=== PATIENT | female | born 1930 | race Caucasian/White ===

== ENCOUNTER 2017-07-20 13:01 | Observation (INO) | payer MEDICARE ==
[2017-07-20 14:12] LABS: #Eosinphils 0.3 thou/uL (0.0-0.7); #Lymphocytes 1.4 thou/uL (1.20-3.40); #Monocytes 0.4 thou/uL (0.11-0.59); #Neutrophils 3.1 thou/uL (1.40-6.50); %Basophils 0.9 % (0.0-1.0); %Eosinophils 6.1 % (0.0-10.0); %Lymphocytes 26.8 % (21.0-51.0); %Monocytes 6.7 % (0.0-10.0); Hematocrit 38.9 % (36.0-47.0); Mean Platelet Volume 8.1 fL (7.4-10.4); Red Blood Cell (RBC) Count 3.87 mill/uL (4.20-5.40); White Blood Cell (WBC) Count 5.2 thou/uL (4.8-10.8)
[2017-07-20 14:29] LABS: PTT 20.7 SEC (22.9-36.1); Prothrombin Time 13.4 SEC (12.0-14.7)
[2017-07-20 14:31] LABS: ALT (SGPT) Less than 7 U/L (8-55); AST (SGOT) 15 U/L (5-34); Alkaline Phosphatase 47 U/L (40-150); Anion Gap 13 mmol/L (10-20); BUN (Urea Nitrogen) 43 mg/dL (9.8-20.1); Bilirubin, Total 0.4 mg/dL (0.2-1.2); CK (CPK) 53 U/L (29-168); Calc. Creatinine Clearance 0 mL/min (70-130); Calcium 9.7 mg/dL (7.8-10.44); Carbon Dioxide 26 mmol/L (23-31); Chloride 106 mmol/L (98-107); Estimated GFR-MDRD 28; Globulin 3.2 g/dL (2.4-3.5); Magnesium 2.1 mg/dL (1.6-2.6); Protein, Total 6.8 g/dL (6.0-8.3)
[2017-07-20 14:36] LABS: Troponin I Less than 0.010 ng/mL (< 0.028)
--- NOTE | 2017-07-20 16:15 | CT ---
CT OF THE BRAIN WITHOUT CONTRAST: Date: 07/20/17 COMPARISON: 11/03/16. HISTORY: Patient was found unresponsive by family. Syncope. TECHNIQUE: Multiple contiguous axial images were obtained in a CT of the brain without contrast. FINDINGS: There are scattered hypodensities in the subcortical and periventricular white matter, likely second yamile to small vessel ischemic disease. No large confluent infarction is seen. There is no evidence of hydrocephalus, intracranial hemorrhage, or extra-axial fluid collection. The calvarium and overlying soft tissues are unremarkable. The visualized paranasal sinuses and mast oid air cells are well aerated. IMPRESSION: No evidence of acute intracranial abnormality. POS: [facility]
--- NOTE | 2017-07-20 16:16 | RAD ---
SINGLE VIEW OF CHEST: Date: 07/20/17 COMPARISON: 11/12/16. HISTORY: Syncope. FINDINGS: Single view of the chest shows an enlarged cardiomediastinal silhouette with atherosclerotic calcifi cations in the aorta. The patient is status post sternotomy. There is no evidence of consolidation, mass, or pleural effusion. Degenerative changes are seen in the spine and shoulders. IMPRESSION: Cardiomegaly without evidence of acute cardiopulmonary disease. POS: [facility]
--- NOTE | 2017-07-20 16:19 | HP ---
PRIMARY CARE PHYSICIAN: Rudy Galdamez M.D. PRIMARY BENCH MOVER: Cheikh Adrian M.D. REASON FOR ADMISSION: Syncope. HISTORY OF PRESENT ILLNESS: An 86-year-old female who has history of coronary artery disease, required CABG, who came to emergency room for syncopal episode. Patient does not have any recall of event, but patient's son witnessed who reports and gives history that this morning, patient woke up, at that time she was perfectly fine. She was able to do routine things. Around noontime when the patient get dressed and when she was trying to put socks as well as trying to wear shoes in her closet, at that time, patient's slumped over and she passed out. The patient's son noticed that after few minutes that she was in closet and not responsive. He also noticed saliva on her chest. He tried to wake her up, her mother, but patient was not responsive and that is why he called 911. Paramedics advised him to keep her on the floor which he did and when paramedics arrived, at that time they just examined her and found that her pulse was running in the 40s. Subsequently, patient was brought to the emergency room. When patient came to ER, her pulse was running in 40-50. Patient was conscious , but she did not have any recall of the event. The patient was not having any palpitation, dizziness. Patient did not have any shortness of breath, orthopnea , PND or leg swelling. Patient did not have any UTI symptoms, constipation, diarrhea, melena or hematochezia. The patient's son reports that this happened after 45 minutes when he gave her metoprolol. Patient's son also reports that few months ago, she had exactly similar low pulse rate. At that time, she did not pass out, but her pulse was in 40s and that is why he stopped giving her metoprolol, but subsequently her trade mark examiner recommended to start metoprolol at half dose. PAST MEDICAL HISTORY: Hypertension, coronary artery disease required CABG, osteoarthritis, physical deconditioning, dyslipidemia, and senile dementia. PAST SURGICAL HISTORY: CABG, left total knee arthroplasty, appendicectomy, hysterectomy, CABG, tonsillectomy, and hysterectomy. PAST PSYCHIATRIC HISTORY: Reviewed and negative. CURRENT HOME MEDICATIONS: Isosorbide mononitrate 30 mg p.o. daily, aspirin 81 mg p.o. daily, hydralazine 50 mg twice daily, Toprol-XL 12.5 mg twice daily, Aricept 10 mg p.o. at bedtime, Zetia 10 mg p.o. daily. ALLERGIES: LIPITOR and also stating she is not tolerating MORPHINE. FAMILY HISTORY: One sister required pacemaker placement. No strong family history of coronary artery disease, stroke or cancer. Paternal history of heart disease and maternal history of aneurysm. SOCIAL HISTORY: Patient lives at home with her son. No history of tobacco, alcohol or illicit drug abuse. EMERGENCY ROOM COURSE: Patient is given IV fluid. REVIEW OF SYSTEMS: The following complete review of systems was negative, unless otherwise mentioned in the HPI or below: Constitutional: Weight loss or gain, ability to conduct usual activities. Skin: Rash, itching. Eyes: Double vision, pain. ENT/Mouth: Nose bleeding, neck stiffness, pain, tenderness. Cardiovascular: Palpitations, dyspnea on exertion, orthopnea. Respiratory: Shortness of breath, wheezing, cough, hemoptysis, fever or night sweats. Gastrointestinal: Poor appetite, abdominal pain, heartburn, nausea, vomiting, constipation, or diarrhea. Genitourinary: Urgency, frequency, dysuria, nocturia. Musculoskeletal: Pain, swelling. Neurologic/Psychiatric: Anxiety, depression. Allergy/Immunologic: Skin rash, bleeding tendency. Please see my HPI for pertinent positive and negative. All other review of systems reviewed and negative except as mentioned in the HPI. PHYSICAL EXAMINATION: VITAL SIGNS: On arrival, blood pressure 147/74, pulse 48, respiratory rate 17, temperature 98.5, saturation 100% on room air, and weight 72.6 kilograms. GENERAL: Patient is currently alert, awake, no obvious acute distress. HEAD: Normocephalic, atraumatic. EYES: Pupils round, reactive to light. Extraocular muscle intact. ENT: Oropharynx within normal limits. Moist mucous membranes. No oral lesions. No pharyngeal erythema, no exudate. NECK: Supple. Range of motion is normal. No meningeal signs of irritation. LUNGS: Clear to auscultation without any rhonchi or rales. CARDIAC: S1, S2 regular, bradycardia. No murmur, no gallop, no rub. ABDOMEN: Soft, bowel sounds present, nontender, nondistended. No organomegaly , no mass, no suprapubic tenderness. BACK: Examination unremarkable, no CVA tenderness. EXTREMITIES: Upper extremity passive movements of all joints are normal. Lower extremities, no edema. Good peripheral pulsation. No calf tenderness. SKIN: No skin rash. HEMATOLOGICAL SYSTEM: No lymphadenopathy. PSYCHIATRIC: Normal affect. IMAGING AND SIGNIFICANT LABORATORY DATA: 1. EKG showing sinus bradycardia. Chest x-ray based on my review, no acute cardiopulmonary process. 2. CBC: WBC 5.2, hemoglobin 12.8, MCV 100, platelet 183, INR 1.0. 3. BMP: Sodium 140, potassium 5.0, chloride 106, carbon dioxide 26, anion gap 13, BUN 43, creatinine 1.72, glucose 106, calcium 9.7, magnesium 2.1. 4. LFT: AST 15, ALT less than 7, alkaline phosphatase 47, albumin 3.6. CK 53 , CK-MB 1.8, troponin I less than 0.010. BNP 149.8. ASSESSMENT AND PLAN: 1. Syncope, most likely related with orthostatic hypotension or sinus bradycardia causing her syncopal episode, that started when she started bending over, that is also worrisome for cervical spondylosis. At this point, patient will be kept in hospital for observation. We will do echocardiography for structural and functional evaluation. We will consult Cardiology to decide about beta rell therapy. We will monitor on telemetry floor. Cardiology also needs to consider for pacemaker evaluation if indicated. Will do serial cardiac enzymes x3 to rule out acute coronary syndrome. We will check TSH. We will discontinue metoprolol therapy. This patient already has a carotid ultrasound in the past and CT angiography did not show any significant blockage. 2. Chronic diastolic heart failure. This patient had echocardiography in 2015 , which showed moderate mitral regurgitation and some diastolic dysfunction. We will repeat echocardiography at this time as well. This patient is euvolemic. 3. Chronic kidney disease stage 3. We will monitor renal function. We will avoid nephrotoxic agent therapy. 4. Macrocytosis. We will start folic acid and vitamin B12 therapy during this admission. 5. Dyslipidemia. We will check lipid profile tomorrow and continue Zetia 10 mg p.o. daily. 6. Senile dementia. We will continue Aricept 10 mg p.o. at bedtime. 7. Coronary artery disease with history of coronary artery bypass graft. We will continue Imdur 30 mg p.o. daily, hydralazine 50 mg twice daily, and aspirin 81 mg p.o. daily. 8. Deep venous thrombosis prophylaxis not needed because we are expecting discharge in 24 hours. 9. Gastrointestinal prophylaxis, Pepcid 20 mg p.o. b.i.d. 10. Code status: The patient is FULL CODE. Patient's son is surrogate decision maker. Disposition plan based on clinical course likely within 24 hours. Plan of care discussed with the patient and patient's son in the emergency room in detail. MTDD
[2017-07-20] MEDS ORDERED: Ondansetron HCl/PF 4 MG/2 ML Vial IVP PRN (16:37)
[2017-07-20] MEDS ORDERED: Senokot 8.6 MG TAB PO PRN (16:37)
[2017-07-20] MEDS ORDERED: Nitroglycerin 0.4 MG TAB (25 Tab Bottle) SL PRN (16:37)
[2017-07-20] MEDS ORDERED: Acetaminophen 325 MG TAB PO PRN (16:37)
[2017-07-20] MEDS ORDERED: Diabetic Tussin 200 MG/10 ML UDCUP PO PRN (16:37)
[2017-07-20] MEDS ORDERED: Zolpidem Tartrate 5 MG TAB PO PRN (16:37)
[2017-07-20] MEDS ORDERED: Loperamide HCl 2 MG CAP PO PRN (16:37)
[2017-07-20] MEDS ORDERED: Sodium Chloride 0.65% Nasal 44 ML BOT EA NARE PRN (16:37)
[2017-07-20] MEDS ORDERED: Chloraseptic Spray 180 ml Bottle PO PRN (16:37)
[2017-07-20] MEDS ORDERED: Loratadine 10 MG TAB PO PRN (16:37)
[2017-07-20] MEDS ORDERED: hydrALAZINE 20 MG/ML VIAL SLOW IVP PRN (16:37)
[2017-07-20] MEDS ORDERED: Artificial Tear Sol 15 ML BOT EA EYE PRN (16:37)
[2017-07-20] MEDS ORDERED: Eucerin (Mineral Oil/Petrolatum,White) 30 gm Jar TOP PRN (16:37)
[2017-07-20] MEDS ORDERED: Mag-Al 1200 mg/1200 mg/30 ML UDCUP PO PRN (16:37)
[2017-07-20] MEDS ORDERED: Ondansetron ODT 4 MG TAB PO PRN (16:37)
[2017-07-20] MEDS ORDERED: Milk Of Magnesia 30 ML UDCUP PO PRN (16:37)
[2017-07-20 16:51] VITALS: BMI 25.7
[2017-07-20 18:06] LABS: Troponin I Less than 0.010 ng/mL (< 0.028)
[2017-07-20] MEDS: hydrALAZINE 25 MG TAB PO SCH (20:46)
[2017-07-20 20:58] LABS: Troponin I Less than 0.010 ng/mL (< 0.028)
[2017-07-20] MEDS ORDERED: FLU VACC TS2017-18 (>65YR) 0.5 ML SYRINGE IM ONE (21:00)
--- NOTE | 2017-07-21 08:44 | PDOC.PN ---
- Subjective Encounter Start Date: 07/21/17 Encounter Start Time: 08:43 Subjective: No Lightheadedness/dizziness/cp/sob/f/c - Objective Resuscitation Status: Resuscitation Status FULL:Full Resuscitation MAR Reviewed: Yes Vital Signs & Weight: Vital Signs (12 hours) Temp Pulse Resp BP BP BP BP 07/21/17 07:47 98.1 F 51 L 14 07/21/17 07:24 98.5 F 50 L 18 147/95 H 165/77 H 07/21/17 04:08 98.1 F 51 L 14 159/77 H 07/20/17 23:10 98 F 55 L 16 166/86 H BP Pulse Ox 07/21/17 07:47 07/21/17 07:24 156/70 H 95 07/21/17 04:08 98 07/20/17 23:10 95 I&O: 07/20/17 07/21/17 07/22/17 06:59 06:59 06:59 Intake Total 540 Output Total 700 Balance -160 Result Diagrams: 07/20/17 14:05 07/20/17 14:04 Phys Exam - Physical Examination Constitutional: NAD HEENT: PERRLA, moist MMs Neck: no nodes, no JVD Respiratory: no wheezing, no rales, no rhonchi, clear to auscultation bilateral Cardiovascular: RRR systolic murmur Gastrointestinal: soft, non-tender, positive bowel sounds Neurological: non-focal, moves all 4 limbs Psychiatric: normal affect Skin: no rash, normal turgor Dx/Plan (1) HTN (hypertension) Code(s): I10 - ESSENTIAL (PRIMARY) HYPERTENSION Status: Acute Qualifiers: (2) Syncope Code(s): R55 - SYNCOPE AND COLLAPSE Status: Acute Qualifiers: (3) CAD (coronary artery disease) Code(s): I25.10 - ATHSCL HEART DISEASE OF [place] CORONARY ARTERY W/O ANG PCTRS Status: Chronic (4) CKD (chronic kidney disease), stage III Status: Chronic (5) Dyslipidemia Code(s): E78.5 - HYPERLIPIDEMIA, UNSPECIFIED Status: Chronic - Plan Syncope likely 2/2 Beta Silverio Intolerance * CT brain: no acute issues * CXR: no infiltrate * holding beta silverio * consulted cardiology * ECHO pending * fall precautions * consult PT * check labs in AM CKDIII * Cr baseline ~1.3-1.7 * avoid nephrotoxic agents * check renal labs in AM Senile Dementia * monitor Dispo: Continue inpt.
[2017-07-21] MEDS ORDERED: Ezetimibe 10 MG TAB PO SCH (09:00)
[2017-07-21] MEDS ORDERED: Famotidine 20 MG TAB PO SCH (09:00)
[2017-07-21] MEDS: hydrALAZINE 25 MG TAB PO SCH (09:13)
[2017-07-21 11:43] VITALS: BP 144/67; TEMP 97.9
--- NOTE | 2017-07-21 13:27 | CON ---
DATE OF CONSULTATION: 07/21/2017 REASON FOR CONSULTATION: Syncope. REFERRING PROVIDER: Dr. Mitchell. HISTORY OF PRESENT ILLNESS: Ms. Haq is a pleasant 86-year-old woman who recently presented wit h syncope. Her son who found Ms. Haq states she was slumped over in the bathroom. There are n o recollections. She does have underlying dementia. This is a third episode of syncope in the last 3 years. She has had a previous workup by Dr. Cheikh Adrian with a 30-day event recorder that wa s negative for significant dysrhythmias. She states the second episode occurred while in the office and was felt to be to dehydration. No chest pain, pressure or other associated symptoms present. She does have an EKG suggesting right bundle branch block with left axis deviation, suggesting bifas cicular block, strongly suggestive of sick sinus syndrome. PAST MEDICAL HISTORY: Dementia, hypertension, CAD status post bypass surgery, osteoarthritis, hyper lipidemia, knee arthroplasty. PAST SURGICAL HISTORY: Appendectomy, hysterectomy, and tonsillectomy. MEDICATIONS: Isosorbide, Toprol, Aricept, aspirin, hydralazine, and Zetia. ALLERGIES: LIPITOR. SOCIAL HISTORY: No current tobacco or alcohol use. She lives with her son. REVIEW OF SYSTEMS: A 10-point systems is reviewed and is as above, negative. PHYSICAL EXAMINATION: VITAL SIGNS: Blood pressure 144/67, pulse 51, temperature 97.9. GENERAL: Patient is a pleasant female who is in no acute distress. The patient appears her stated age. NEUROLOGIC: The patient is alert and oriented times 3 with no focal neurologic deficits. HEENT: Sclerae without icterus. Mouth has moist mucous membranes with normal pallor. NECK: No JVD. Carotid upstroke brisk. No bruits bilaterally. LUNGS: Clear to auscultation with unlabored respirations. BACK: No scoliosis or kyphosis. CARDIAC: Regular rate and rhythm with normal S1 and S2. No S3 or S4 noted. No significant rubs, m urmurs, thrills, or gallops noted throughout the precordium. PMI is not displaced. There is no par asternal heave. ABDOMEN: Soft, nontender, nondistended. No peritoneal signs present. No hepatosplenomegaly. No a bnormal striae. EXTREMITIES: 2+ femoral and 2+ dorsalis pedis pulses. No cyanosis, clubbing, or edema. SKIN: No gross abnormalities. PERTINENT LABORATORY DATA: Hemoglobin 12.8, troponin less than 0.01, BNP 149. IMPRESSION: 1. Syncope. 2. Abnormal EKG. RECOMMENDATIONS: Ms. Haq symptoms are likely related to sick sinus syndrome, but there has bee n no evidence noted on the monitor. Would recommend stopping beta rell therapy permanently. Wou ld also recommend an implantable loop recorder since she has already had a 30-day event recorder in the past. I discussed the risks of the procedure including bleeding, infection, explanted the devic e in addition to pneumothorax. The son has agreed to proceed with the above. Once this is placed, would be okay from my standpoint to discharge home with close outpatient followup. Her monitor over night has been stable with no significant dysrhythmias.
--- NOTE | 2017-07-21 23:41 | DIS ---
DATE OF ADMISSION: 07/20/2017 at 3:02 p.m. CHIEF COMPLAINT: Syncope. HOSPITAL COURSE: This is an 86-year-old female, who presented after suffering an episode of syncope . Cardiology was consulted and then planned to do the loop recorder today. Beta-rell will be st opped permanently as there is suspicion for sick sinus syndrome. The patient did have a history of an event monitor and that is why a loop recorder was placed today. The patient will be monito red by Cardiology as an outpatient. We will setup a followup appointment with Dr. Cabrera. PRIMARY DISCHARGE DIAGNOSES: 1. Syncope. 2. Chronic kidney disease, stage 3. 3. Senile dementia. For discharge physical exam, labs and imaging, please refer to chart for details. These have been r eviewed. DISCHARGE MEDICATIONS: I reviewed and reconciled, the only change is a permanent discontinuation of the patient's beta-rell until the loop recorder findings can be evaluated by Cardiology as an ou tpatient. DISCHARGE PLAN/DISPOSITION: 1. Discharge home today. Follow up with PCP in 1 week. 2. Follow up with Dr. Cabrera of Cardiology as outpatient for loop recorder result as sick sinus syndrome is suspected. 3. Beta-rell has been discontinued secondary to suspicion for sick sinus syndrome. 4. Resume home diet. 5. Activity as tolerated.
== END 2017-07-21 15:52 | disposition home or self-care (01) ==
LOC: ERS 13:01 → 2SW 16:21
PROVIDERS: ADMIT Internal Medicine; ATTEND Internal Medicine
DX: R55 Syncope and collapse (principal); F03.90 Unspecified dementia, unspecified severity, without behavioral disturbance, psychotic disturbance, mood disturbance, and anxiety; I25.10 Atherosclerotic heart disease of native coronary artery without angina pectoris; M19.90 Unspecified osteoarthritis, unspecified site; R53.81 Other malaise; I13.0 Hypertensive heart and chronic kidney disease with heart failure and stage 1 through stage 4 chronic kidney disease, or unspecified chronic kidney disease; N18.3 Chronic kidney disease, stage 3 (moderate); I50.32 Chronic diastolic (congestive) heart failure; D75.89 Other specified diseases of blood and blood-forming organs; E78.5 Hyperlipidemia, unspecified; R94.31 Abnormal electrocardiogram [ECG] [EKG]; Z79.82 Long term (current) use of aspirin; Z79.899 Other long term (current) drug therapy; Z88.5 Allergy status to narcotic agent; Z88.8 Allergy status to other drugs, medicaments and biological substances; Z95.1 Presence of aortocoronary bypass graft; Z96.652 Presence of left artificial knee joint; Z90.710 Acquired absence of both cervix and uterus; Z90.89 Acquired absence of other organs; Z90.49 Acquired absence of other specified parts of digestive tract
CPT/HCPCS: 33282; 70450; 71010; 80053; 80061; 82550; 82553; 83735; 83880; 84443; 84484 ×2; 85025; 85610; 85730; 93005; 93306; 96360; 97139; 99285; C1764; G0008; G0378; Q2036; 36415; 90471; 90682

== ENCOUNTER 2017-07-27 13:15 | Observation (INO) | payer MEDICARE ==
[2017-07-27 13:58] LABS: #Basophils 0.1 thou/uL (0.0-0.2); #Eosinphils 0.3 thou/uL (0.0-0.7); #Lymphocytes 1.3 thou/uL (1.20-3.40); #Monocytes 0.3 thou/uL (0.11-0.59); #Neutrophils 3.2 thou/uL (1.40-6.50); %Basophils 1.5 % (0.0-1.0); %Eosinophils 6.2 % (0.0-10.0); %Monocytes 6.1 % (0.0-10.0); Hematocrit 39.5 % (36.0-47.0); Mean Platelet Volume 7.7 fL (7.4-10.4); Red Blood Cell (RBC) Count 3.96 mill/uL (4.20-5.40); White Blood Cell (WBC) Count 5.3 thou/uL (4.8-10.8)
--- NOTE | 2017-07-27 14:12 | RAD ---
FRONTAL VIEW CHEST: COMPARISON: 07/20/17. INDICATION: Syncope. FINDINGS: The cardiac silhouette is accentuated by portable technique. There are interstitial opacities bilat erally without evidence of lobar consolidation or effusion. Evidence of prior sternotomy with vascu lar calcification. IMPRESSION: Interstitial prominence of each lung which may be on the basis of edema or interstitial lung disease . No lobar consolidation. POS: [facility]
[2017-07-27 14:21] LABS: ALT (SGPT) 8 U/L (8-55); AST (SGOT) 15 U/L (5-34); Alkaline Phosphatase 46 U/L (40-150); Anion Gap 13 mmol/L (10-20); BUN (Urea Nitrogen) 45 mg/dL (9.8-20.1); Bilirubin, Total 0.4 mg/dL (0.2-1.2); CK (CPK) 59 U/L (29-168); Calc. Creatinine Clearance 0 mL/min (70-130); Calcium 10.1 mg/dL (7.8-10.44); Carbon Dioxide 28 mmol/L (23-31); Chloride 103 mmol/L (98-107); Estimated GFR-MDRD 27; Globulin 3.5 g/dL (2.4-3.5); Protein, Total 7.3 g/dL (6.0-8.3)
[2017-07-27 14:24] LABS: Troponin I Less than 0.010 ng/mL (< 0.028)
--- NOTE | 2017-07-27 16:37 | HP ---
PRIMARY CARE PHYSICIAN: Rudy Galdamez M.D. PRIMARY CAR INSPECTION AND REPAIR MANAGER: Cheikh Adrian M.D. REASON FOR ADMISSION: Syncope. HISTORY OF PRESENT ILLNESS: An 87-year-old female, who was recently admitted in our hospital on . At that time, the patient was admitted for syncopal episode. At that time, the patient's pulse was running in 40 to 50s and the patient was on beta-rell therapy and that is why beta-bloc ker therapy was discontinued. During that admission, the patient had a loop recorder was inserted i n her chest and subsequently she was discharged home. At that time, the patient was not meeting cri teria for pacemaker. Today, the patient had exactly similar type of syncopal episode. Today, the patient was seated in h er dining table and she had breakfast done and she drank coffee. The patient started mumbling and t hen the patient's son was trying to communicate with her, she was not able to respond well. The pat ient kept her head down and she was not talking and not responding. At that time, the patient's son noted that pulse was in 50s. The patient's son called paramedics and subsequently as per swing ride operator s advice the patient's son made her to lie down on the floor. At this time, the patient's blood pre ssure and vitals are stable. Before passing out, the patient was complaining of dizziness. She was feeling funny in her chest. She did not fall and she did not have any head trauma. She did not have any seizure type of activit y. She was not having any nausea, vomiting, diarrhea or any chest pain. She did not have any UTI s ymptoms. She did not have any fever or chills. The patient's son reports that lately she is gettin g more and more dizziness. When she came to the emergency room, at that time, her pulse was running in the 50s, otherwise she was hypertensive. PAST MEDICAL HISTORY: Hypertension, coronary artery disease required CABG, osteoarthritis, chronic physical deconditioning, dyslipidemia, and senile dementia. PAST SURGICAL HISTORY: Left total knee arthroplasty, appendicectomy, CABG, tonsillectomy, and hyste rectomy. PAST PSYCHIATRIC HISTORY: Reviewed and negative. CURRENT HOME MEDICATIONS: Aspirin 81 mg p.o. daily, Imdur 30 mg half tablet daily, hydralazine 50 m g p.o. b.i.d., Zetia 10 mg p.o. at bedtime, Aricept 10 mg p.o. at bedtime, calcium with vitamin D tw o tablets p.o. b.i.d., vitamin C 500 mg p.o. daily, zinc 50 mg p.o. daily. Note, the [facility] physician reduced dose of Imdur after discharge from the hospital. ALLERGIES: LIPITOR, MORPHINE, and STATINS. The patient is not tolerating any kind of STATIN THERAP Y. FAMILY HISTORY: One sister has required pacemaker placement. No strong family history of coronary artery disease, stroke or cancer. Paternal history of heart disease and maternal history of aneurys m. SOCIAL HISTORY: The patient lives at home with her son. No history of tobacco, alcohol or illicit drug abuse. EMERGENCY ROOM COURSE: The patient is given 500 mL of fluid. REVIEW OF SYSTEMS: The following complete review of systems was negative, unless otherwise mentione d in the HPI or below: Constitutional: Weight loss or gain, ability to conduct usual activities. Skin: Rash, itching. Eyes: Double vision, pain. ENT/Mouth: Nose bleeding, neck stiffness, pain, tenderness. Cardiovascular: Palpitations, dyspnea on exertion, orthopnea. Respiratory: Shortness of breath, wheezing, cough, hemoptysis, fever or night sweats. Gastrointestinal: Poor appetite, abdominal pain, heartburn, nausea, vomiting, constipation, or diar dariel. Genitourinary: Urgency, frequency, dysuria, nocturia. Musculoskeletal: Pain, swelling. Neurologic/Psychiatric: Anxiety, depression. Allergy/Immunologic: Skin rash, bleeding tendency. Please see my HPI for pertinent positives and negatives. All other review of systems reviewed and n egative except that mentioned in the HPI. Review of systems is pretty much not reliable completely because of the patient's senile dementia. PHYSICAL EXAMINATION: VITAL SIGNS: On arrival, blood pressure 172/75, pulse 49, respiratory rate 18, temperature 97.6, sa turation 96% on room air, weight 78.2 kilograms. GENERAL: The patient is currently alert, awake, no obvious acute distress. HEENT: Normocephalic, atraumatic. Eyes: Pupils round, reactive to light. Extraocular muscles are intact. ENT: Oropharynx within normal limits. Moist mucous membranes. No oral lesions. No pharyngeal rhina thema, no exudate. NECK: Supple. Range of motion is normal. No meningeal signs of irritation. LUNGS: Clear to auscultation without any rhonchi or rales. CARDIAC: S1, S2 appears irregular, bradycardic. No murmur, no gallop, no rub. ABDOMEN: Soft, bowel sounds present, nontender, nondistended. No organomegaly, no mass, no suprapu bic tenderness. BACK: Unremarkable, no CVA tenderness. EXTREMITIES: Upper extremity passive movement of all joints are normal. Lower extremities: No claudia ma. Good peripheral pulsation. SKIN: No skin rash. HEMATOLOGICAL: No lymphadenopathy. PSYCHIATRIC: Normal affect. NEUROLOGIC: No focal neurological deficit noted. She moves all 4 limbs, but slowly responding. SIGNIFICANT LABS: EKG based on my review, poor quality EKG showing irregularity with bradycardia, f ascicular block also noted. Chest x-ray based on my review, no acute cardiopulmonary process, chronic interstitial changes, loop recorder noted. CBC: WBC 5.3, hemoglobin 13.2, platelet 181. BMP: Sodium 140, potassium 4.2, chloride 103, carbon dioxide 28, BUN 45, creatinine 1.77, glucose 209, calcium 10.1. LFT: AST 15, ALT 8, alkaline phosphatase 46, albumin 3.8, CK 59, CK-MB 2.0, troponin I less than 0. 010. ASSESSMENT AND PLAN: 1. Recurrent syncope. This patient has more frequent dizziness and more recently two syncopal epis ode. She had echocardiography done on 07/21/2017 that showed diastolic dysfunction and mild tricusp id regurgitation. This patient also has bradycardia with bradyarrhythmia. This patient required a loop recorder placed during the previous admission. At this point, we will consult Cardiology and C ardiology will interrogate this loop recorder to see what kind of arrhythmia happened today that can explain the patient's recurrent syncope. We will ask Cardiology to evaluate for pacemaker. 2. Senile dementia. We will continue Aricept 10 mg p.o. at bedtime. 3. Coronary artery disease, required coronary artery bypass grafting. We will continue Imdur 15 mg p.o. daily, aspirin 81 mg p.o. daily, and Zetia 10 mg p.o. at bedtime. 4. Hypertension. We will continue hydralazine 50 mg p.o. b.i.d. along with Imdur 15 mg p.o. daily. We will use IV hydralazine on p.r.n. basis for hypertension. 5. Chronic kidney disease, stage 3. We will monitor renal function. We will avoid nephrotoxic age nt. Currently, renal function is stable. 6. Deep venous thrombosis prophylaxis not needed because we are expecting discharge in 24 hours. 7. Gastrointestinal prophylaxis, Protonix 40 mg p.o. daily. CODE STATUS: The patient is FULL CODE. The patient's son is surrogate decision maker. Disposition plan based on clinical course and based on Cardiology recommendation.
[2017-07-27 17:24] LABS: Troponin I 0.011 ng/mL (< 0.028)
[2017-07-27] MEDS ORDERED: Acetaminophen 325 MG TAB PO PRN (17:53)
[2017-07-27] MEDS ORDERED: Sodium Chloride 0.9% 1,000 ML IV SCH (17:53)
[2017-07-27] MEDS ORDERED: Ondansetron ODT 4 MG TAB SL PRN (17:53)
[2017-07-27] MEDS ORDERED: Nitroglycerin 0.4 MG TAB (25 Tab Bottle) SL PRN (17:53)
[2017-07-27] MEDS ORDERED: Milk Of Magnesia 30 ML UDCUP PO PRN (17:53)
[2017-07-27] MEDS ORDERED: Diabetic Tussin 200 MG/10 ML UDCUP PO PRN (17:53)
[2017-07-27] MEDS ORDERED: Loperamide HCl 2 MG CAP PO PRN (17:53)
[2017-07-27] MEDS ORDERED: Mag-Al 1200 mg/1200 mg/30 ML UDCUP PO PRN (17:53)
[2017-07-27] MEDS ORDERED: Loratadine 10 MG TAB PO PRN (17:53)
[2017-07-27] MEDS ORDERED: hydrALAZINE 20 MG/ML VIAL SLOW IVP PRN (17:53)
[2017-07-27] MEDS ORDERED: Eucerin (Mineral Oil/Petrolatum,White) 30 gm Jar TOP PRN (17:53)
[2017-07-27] MEDS ORDERED: Ondansetron ODT 4 MG TAB PO PRN (17:53)
[2017-07-27] MEDS ORDERED: Ondansetron HCl/PF 4 MG/2 ML Vial IVP PRN ×2 (17:53)
[2017-07-27] MEDS ORDERED: Sodium Chloride 0.65% Nasal 44 ML BOT EA NARE PRN (17:53)
[2017-07-27] MEDS ORDERED: Zolpidem Tartrate 5 MG TAB PO PRN (17:53)
[2017-07-27] MEDS ORDERED: Senokot 8.6 MG TAB PO PRN (17:53)
[2017-07-27 18:16] VITALS: BMI 24.4
[2017-07-27 21:27] LABS: Troponin I Less than 0.010 ng/mL (< 0.028)
[2017-07-27] MEDS: hydrALAZINE 25 MG TAB PO SCH (21:45)
[2017-07-27] MEDS: Donepezil HCl 10 MG TAB PO SCH (21:45)
[2017-07-28 05:30] LABS: #Basophils 0.1 thou/uL (0.0-0.2); #Eosinphils 0.3 thou/uL (0.0-0.7); #Monocytes 0.6 thou/uL (0.11-0.59); #Neutrophils 2.7 thou/uL (1.40-6.50); %Basophils 1.5 % (0.0-1.0); %Eosinophils 4.8 % (0.0-10.0); %Lymphocytes 36.1 % (21.0-51.0); %Monocytes 10.1 % (0.0-10.0); Mean Platelet Volume 8.5 fL (7.4-10.4); Red Blood Cell (RBC) Count 3.84 mill/uL (4.20-5.40); White Blood Cell (WBC) Count 5.6 thou/uL (4.8-10.8)
[2017-07-28 05:42] LABS: Anion Gap 10 mmol/L (10-20); BUN (Urea Nitrogen) 38 mg/dL (9.8-20.1); Calc. Creatinine Clearance 33 mL/min (70-130); Calcium 9.4 mg/dL (7.8-10.44); Carbon Dioxide 26 mmol/L (23-31); Chloride 107 mmol/L (98-107); Estimated GFR-MDRD 35
[2017-07-28] MEDS: Ezetimibe 10 MG TAB PO SCH (08:39)
[2017-07-28] MEDS: hydrALAZINE 25 MG TAB PO SCH ×2 (08:39→21:48)
--- NOTE | 2017-07-28 12:49 | PDOC.PN ---
- Subjective Encounter Start Date: 07/28/17 Encounter Start Time: 10:45 -: old records requested/rev Patient seen and examined. No new complaints. No overnight events - Objective Resuscitation Status: Resuscitation Status FULL:Full Resuscitation MAR Reviewed: Yes Vital Signs & Weight: Vital Signs (12 hours) Temp Pulse Pulse Pulse Pulse Pulse Resp 07/28/17 10:05 63 68 81 67 07/28/17 08:45 97.9 F 55 L 16 07/28/17 08:39 55 L 07/28/17 08:37 97.9 F 55 L 14 07/28/17 04:00 97.7 F 62 16 BP BP BP BP BP BP Pulse Ox 07/28/17 10:05 139/67 184/81 H 149/61 H 158/71 H 07/28/17 08:45 07/28/17 08:39 149/65 H 07/28/17 08:37 149/65 H 94 L 07/28/17 04:00 156/72 H 96 Weight Weight 168 lb I&O: 07/27/17 07/28/17 07/29/17 06:59 06:59 06:59 Intake Total 840 Output Total 550 Balance 290 Result Diagrams: 07/28/17 04:59 07/28/17 04:59 EKG Reviewed by me: Yes Phys Exam - Physical Examination Constitutional: NAD HEENT: PERRLA, moist MMs, sclera anicteric Neck: no JVD, supple Respiratory: no wheezing, no rales, no rhonchi Cardiovascular: RRR, no significant murmur, no rub Gastrointestinal: soft, non-tender, no distention, positive bowel sounds Musculoskeletal: no edema, pulses present Neurological: non-focal, normal sensation Lymphatic: no nodes Psychiatric: normal affect Skin: no rash, normal turgor Dx/Plan (1) Acute worsening of stage 3 chronic kidney disease Code(s): N18.3 - CHRONIC KIDNEY DISEASE, STAGE 3 (MODERATE) Status: Acute (2) Syncope Code(s): R55 - SYNCOPE AND COLLAPSE Status: Acute Qualifiers: (3) Anemia, normocytic normochromic Code(s): D64.9 - ANEMIA, UNSPECIFIED Status: Chronic (4) CAD (coronary artery disease) Code(s): I25.10 - ATHSCL HEART DISEASE OF [place] CORONARY ARTERY W/O ANG PCTRS Status: Chronic (5) CKD (chronic kidney disease), stage III Status: Chronic (6) Dyslipidemia Code(s): E78.5 - HYPERLIPIDEMIA, UNSPECIFIED Status: Chronic (7) HTN (hypertension) Code(s): I10 - ESSENTIAL (PRIMARY) HYPERTENSION Status: Chronic Qualifiers: (8) Hypertension Code(s): I10 - ESSENTIAL (PRIMARY) HYPERTENSION Status: Chronic (9) Senile dementia Code(s): F03.90 - UNSPECIFIED DEMENTIA WITHOUT BEHAVIORAL DISTURBANCE Status: Chronic - Plan cont current plan of care, plan discussed w/ family * cardiology to see her today and decide if she needs any pacemaker * she may need interrogation of event recorder to see rhythem yesterday * medication reviewed as below * symptomatic treatment * discussed with son. Review of Systems - Review of Systems ENT: negative: Ear Pain, Ear Discharge, Nose Pain, Nose Discharge, Nose Congestion, Mouth Pain, Mouth Swelling, Throat Pain, Throat Swelling, Other Respiratory: negative: Cough, Dry, Shortness of Breath, Hemoptysis, SOB with Excertion, Pleuritic Pain, Sputum, Wheezing Cardiovascular: negative: Chest Pain, Palpitations, Orthopnea, Paroxysmal Noc. Dyspnea, Edema, Light Headedness, Other Gastrointestinal: negative: Nausea, Vomiting, Abdominal Pain, Diarrhea, Constipation, Melena, Hematochezia, Other Genitourinary: negative: Dysuria, Frequency, Incontinence, Hematuria, Retention , Other Musculoskeletal: negative: Neck Pain, Shoulder Pain, Arm Pain, Back Pain, Hand Pain, Leg Pain, Foot Pain, Other Skin: negative: Rash, Lesions, Karri, Bruising, Other - Medications/Allergies Allergies/Adverse Reactions: Allergies Allergy/AdvReac Type Severity Reaction Status Date / Time atorvastatin calcium Allergy Severe Verified 10/31/16 01:54 [From Lipitor] morphine AdvReac Severe drop in Verified 10/31/16 01:54 b/p? Medications: Current Medications Acetaminophen (Tylenol) 650 mg PO Q4H PRN PRN Reason: Headache/Fever or Pain Al Hydroxide/Mg Hydroxide (Maalox) 30 ml PO Q6H PRN PRN Reason: Heartburn or Indigestion Aspirin (Aspirin Chewable) 81 mg PO DAILY [facility] Last Admin: 07/28/17 08:39 Dose: 81 mg Donepezil HCl (Aricept) 10 mg PO HS [facility] Last Admin: 07/27/17 21:45 Dose: 10 mg Ezetimibe (Zetia) 10 mg PO DAILY [facility] Last Admin: 07/28/17 08:39 Dose: 10 mg Guaifenesin (Robitussin Sf) 200 mg PO Q4H PRN PRN Reason: Cough Hydralazine HCl (Apresoline) 10 mg SLOW IVP Q4H PRN PRN Reason: Systolic BP > 180 Last Admin: 07/28/17 01:02 Dose: 10 mg Hydralazine HCl (Apresoline) 50 mg PO BID [facility] Last Admin: 07/28/17 08:39 Dose: 50 mg Isosorbide Mononitrate (Imdur Er) 15 mg PO DAILY [facility] Last Admin: 07/28/17 08:39 Dose: 15 mg Loperamide HCl (Imodium) 2 mg PO PRN PRN PRN Reason: Diarrhea/Loose Stools Loratadine (Claritin) 10 mg PO DAILYPRN PRN PRN Reason: Sinus Symptoms Magnesium Hydroxide (Milk Of Magnesium) 30 ml PO DAILYPRN PRN PRN Reason: Constipation Mineral Oil/White Petrolatum (Eucerin Cream) 0 gm TOP BIDPRN PRN PRN Reason: Dry Skin Nitroglycerin (Nitrostat) 0.4 mg SL Q5MIN PRN PRN Reason: Chest Pain Ondansetron HCl (Zofran Odt) 4 mg PO Q6H PRN PRN Reason: Nausea/Vomiting Ondansetron HCl (Zofran) 4 mg IVP Q6H PRN PRN Reason: Nausea/Vomiting Pantoprazole Sodium (Protonix) 40 mg PO 2100 [facility] Last Admin: 07/27/17 21:45 Dose: 40 mg Senna (Senokot) 2 tab PO HSPRN PRN PRN Reason: Constipation Sodium Chloride ([place] 0.65%) 0 ml EA NARE QIDPRN PRN PRN Reason: Nasal Congestion Zolpidem Tartrate (Ambien) 5 mg PO HSPRN PRN PRN Reason: Insomnia
--- NOTE | 2017-07-28 18:39 | CON ---
DATE OF CONSULTATION: 07/28/2017 PRIMARY EMERGENCY MEDICAL DISPATCHER: Dr. Cheikh Adrian. REASON FOR CONSULTATION: Syncope. HISTORY OF PRESENT ILLNESS: Ms. Haq is a very pleasant 87-year-old white female who comes to [facility] for a syncopal spell. She was having breakfast with her son and she suddenly just slump ed over, her son witnessed the whole event. A few minutes later, she was back to normal. EMS was c alled and on once EMS got to her, her heart rate was in the upper 40s to low 50s, and she was starte d to wake up, eventually got back to normal, and was brought in for further evaluation. She did the same thing a week ago and was admitted over the weekend. Dr. Cabrera was monitoring tech for Dr. Mihir mckeon at that time and Ms. Haq was discharged home with the LINQ implantable loop recorder. Ms. Sandie dia' son is in the room on my evaluation and he tells me that on last visit with her primary care doctor, Dr. Galdamez, he cut back the Imdur and put her on just 50 mg of isosorbide dinitrate and the first dose that she took of this new medicine at 5 mg 3 times a day. She took the first dose in th e morning of passing out episode, actually about an hour before having her syncopal spell. PAST MEDICAL HISTORY: 1. Hypertension. 2. Coronary artery disease. 3. Status post bypass in the past. 4. Osteoarthritis. 5. Physical deconditioning. 6. Dyslipidemia. 7. Dementia. PAST SURGICAL HISTORY: 1. Total knee replacement. 2. Appendectomy. 3. CABG. 4. Tonsillectomy. 5. Hysterectomy. OUTPATIENT MEDICATIONS: Include; 1. Aspirin 81 mg a day. 2. Imdur 30 mg half tablet a day. 3. Hydralazine 50 mg b.i.d. 4. Zetia 10 mg at bedtime. 5. Aricept 10 mg at bedtime. 6. Calcium and vitamin D. 7. Vitamin C. 8. Zinc daily. ALLERGIES: LIPITOR, MORPHINE, any STATIN. FAMILY HISTORY: Sister with pacemaker placement, no early coronary artery disease. SOCIAL HISTORY: No alcohol or tobacco. Lives with her son. REVIEW OF SYSTEMS: A 12-point review of systems was done and is all negative unless stated in the h istory of present illness. PHYSICAL EXAMINATION: VITAL SIGNS: Temperature 98.3, pulse 61, respiration rate 16, satting 96% on room air, blood pressu re 164/77. GENERAL: Awake, alert, oriented x3, in no distress. HEENT: Normocephalic, atraumatic. NECK: Supple. LUNGS: Clear. CARDIOVASCULAR: S1, S2. No S3, S4. No murmurs or rubs. ABDOMEN: Soft and nontender. EXTREMITIES: No edema. SKIN: Warm and dry. LABORATORY WORK: Reviewed. CBC is unremarkable, normal white count, normal hemoglobin, normal plat elets. Chemistry was unremarkable except for mildly elevated creatinine on admission to 1.7, down t o 1.41 now. Troponin has been negative x4. CK-MB is negative x3, albumin is normal. Chest x-ray on admission was unremarkable. ASSESSMENT AND PLAN: 1. Syncope: I had her loop recorder interrogated and it showed that during the episode of syncope, her heart rate went down to 38 and this correlated with the time of her syncopal episode. I suspec t this episode of syncope may have been related to symptomatic bradycardia. We will discuss with Dr Erik Adrian, her primary blockers skiver. Possibility of placing a pacemaker in the morning. I spoke w ith her and the son about the risks and benefits of the procedure and they both agreed to proceed. 2. I will plan on stopping the Isordil as well as this may be playing a role in her episodes of syn cope as well. Thank you for letting us to participate in the care of your patient. Dr. Adrian, her primary card iologist, will have further recommendations in the morning.
[2017-07-28] MEDS: Donepezil HCl 10 MG TAB PO SCH (21:47)
[2017-07-29] MEDS ORDERED: CEFAZOLIN 1 GM VIAL ONE (07:57)
[2017-07-29] MEDS ORDERED: CEFAZOLIN/Water 2 GM/20 ML SYRINGE ONE (07:57)
[2017-07-29] MEDS ORDERED: Fentanyl 100 MCG/2 ML VIAL ONE (08:13)
[2017-07-29] MEDS ORDERED: Gentamicin 80 MG/2 ML VIAL ONE (08:13)
[2017-07-29] MEDS ORDERED: Midazolam HCl 2 mg/2 ml Vial ONE (08:13)
[2017-07-29] MEDS ORDERED: Lidocaine 1% (PF) 30 ML VIAL ONE (08:26)
[2017-07-29] MEDS ORDERED: Acetaminophen/Codeine 30-300mg Tablet PO PRN ×2 (09:54)
[2017-07-29] MEDS ORDERED: Amlodipine 5 MG TAB PO SCH (10:25)
--- NOTE | 2017-07-29 10:28 | PDOC.PN ---
- Subjective Encounter Start Date: 07/29/17 Encounter Start Time: 10:26 Patient seen and examined. No new complaints. No overnight events. Had pacemaker this AM. feels tired. Son at bedside and would like to have PT at home. No chest pain or N/V reported. - Objective Resuscitation Status: Resuscitation Status FULL:Full Resuscitation MAR Reviewed: Yes Vital Signs & Weight: Vital Signs (12 hours) Temp Pulse Resp BP Pulse Ox 07/29/17 05:30 58 L 172/88 H 07/29/17 04:00 97.8 F 77 18 192/91 H 93 L 07/29/17 00:30 56 L 162/78 H 100 07/29/17 00:15 120 H 183/118 H Weight Weight 167 lb 12.8 oz I&O: 07/28/17 07/29/17 07/30/17 06:59 06:59 06:59 Intake Total 840 410 Output Total 550 400 Balance 290 10 Result Diagrams: 07/28/17 04:59 07/28/17 04:59 Additional Labs: Accuchecks 07/28/17 16:48 POC Glucose 92 Phys Exam - Physical Examination Constitutional: NAD HEENT: sclera anicteric Neck: supple Respiratory: no wheezing, no rales Cardiovascular: RRR Gastrointestinal: soft Musculoskeletal: no edema Neurological: non-focal, moves all 4 limbs Psychiatric: normal affect, A&O x 3 Skin: no rash, normal turgor Dx/Plan (1) Syncope Code(s): R55 - SYNCOPE AND COLLAPSE Status: Acute Qualifiers: (2) CAD (coronary artery disease) Code(s): I25.10 - ATHSCL HEART DISEASE OF [place] CORONARY ARTERY W/O ANG PCTRS Status: Chronic (3) CKD (chronic kidney disease), stage III Status: Chronic (4) Dyslipidemia Code(s): E78.5 - HYPERLIPIDEMIA, UNSPECIFIED Status: Chronic (5) HTN (hypertension) Code(s): I10 - ESSENTIAL (PRIMARY) HYPERTENSION Status: Chronic Qualifiers: (6) Senile dementia Code(s): F03.90 - UNSPECIFIED DEMENTIA WITHOUT BEHAVIORAL DISTURBANCE Status: Chronic - Plan cont current plan of care, plan discussed w/ family, PT/OT, 7th grade social studies teacher, DVT proph w/SCDs * . had PM today. f/u with cardiology for further plans Isodil stopped yesterday. will add Amlodipine for BP. Monitor BP closely. will check AM labs. DC planning - son would like to have PT at home.
[2017-07-29] MEDS: Ezetimibe 10 MG TAB PO SCH (10:59)
[2017-07-29] MEDS: hydrALAZINE 25 MG TAB PO SCH ×2 (10:59→22:45)
--- NOTE | 2017-07-29 12:22 | RAD ---
PORTABLE CHEST: HISTORY: Post pacemaker placement. FINDINGS: Heart size is borderline. Postop sternotomy change. The lungs are clear of infiltrates. No signs of failure. A pacemaker is in place. No signs of pneumothorax. An electronic device is seen withi n the soft tissues in the left chest region. IMPRESSION: Interval placement of a pacemaker. No signs of pneumothorax. POS: [facility]
[2017-07-29] MEDS: Cephalexin 250 MG CAP PO SCH ×2 (15:34→22:45)
[2017-07-29] MEDS: Donepezil HCl 10 MG TAB PO SCH (22:46)
[2017-07-30 04:50] LABS: #Basophils 0.1 thou/uL (0.0-0.2); #Eosinphils 0.3 thou/uL (0.0-0.7); #Lymphocytes 1.7 thou/uL (1.20-3.40); #Monocytes 0.7 thou/uL (0.11-0.59); #Neutrophils 3.6 thou/uL (1.40-6.50); %Basophils 0.8 % (0.0-1.0); %Eosinophils 4.8 % (0.0-10.0); %Lymphocytes 27.2 % (21.0-51.0); %Monocytes 10.4 % (0.0-10.0); Hematocrit 36.1 % (36.0-47.0); Red Blood Cell (RBC) Count 3.72 mill/uL (4.20-5.40); White Blood Cell (WBC) Count 6.4 thou/uL (4.8-10.8)
[2017-07-30 05:11] LABS: Anion Gap 10 mmol/L (10-20); BUN (Urea Nitrogen) 52 mg/dL (9.8-20.1); Calc. Creatinine Clearance 32 mL/min (70-130); Calcium 8.9 mg/dL (7.8-10.44); Carbon Dioxide 26 mmol/L (23-31); Chloride 103 mmol/L (98-107); Estimated GFR-MDRD 34
--- NOTE | 2017-07-30 07:15 | CCL ---
PROCEDURE NOTE: Date: 07/29/17 PROCEDURE: Permanent pacemaker insertion. INDICATION: Extreme sinus bradycardia with heart rate of 38/minute on LINQ, associated with syncope. PROCEDURE DETAILS: Patient was brought to cardiac corn lab technician and the left subclavian area was prepped and draped. Patient was given fentanyl 25 mg IV and Versed 1 mg IV for conscious sedation. Patient was monitored throughout the procedure for approximately 1 hour and 15 minutes of sedation. 1% lidocaine was infiltrated into the left subclavian area. A J-wire was placed into the left subclavian vein. Pacemaker pocket was then manufactured using blunt and sharp dissection, with electrocautery for hemostasis. An antibiotic solution soaked gauze was placed into the pocket. A second J-wire was then placed in the left subclavian vein. Using 7 [place] peel-away sheathes, the atrial and ventricular leads were inserted. Ventricular lead was advanced to right ventricular apex and atrial lead was screwed into right atrium. Right ventricular lead: R-wave 9.7, impedance 1041, threshold 0.8 volts. Right atrial lead: P-wave 3.8, impedance 609, threshold 1.0 volts. Both leads were paced at 10 volts without muscle or diaphragmatic stimulation. Tabs on the suture tie-downs were removed and both leads were secured in place with two sutures of 0 silk. The antibiotic solution soaked gauze was then removed and the pocket was irrigated with copious amounts of antibiotic solution. Leads were attached to the pacemaker generator and the generator was secured in place with one suture of 0 silk. Incision was then closed using two layers of running 3-0 Vicryl and one layer running 4-0 Vicryl. Dermabond was placed on the incision. Patient tolerated the procedure well. KELI
[2017-07-30 07:20] VITALS: TEMP 97.4
--- NOTE | 2017-07-30 08:27 | PQF ---
CLINICAL DOCUMENTATION IMPROVEMENT CLARIFICATION FORM: ICD-10 Updated PLEASE DO AN ADDENDUM TO THE PROGRESS NOTE WITH ANY DOCUMENTATION UPDATES OR ADDITIONS AND CARRY THROUGH TO DC SUMMARY. THANK YOU. DATE: 07/30 ATTN: DR. Edgard GHOTRA Please exercise your independent, professional judgment in responding to the clarification form. Clinical indicators are provided on the bottom of this form for your review Please check appropriate box(s): Syncope Due to: [ x ] Symptomatic Bradycardia [ ] Other Cardiac Arrhythmia [ ] Other diagnosis [ ] Unable to determine For continuity of documentation, please document condition throughout progress notes and discharge summary. Thank You. CLINICAL INDICATORS - SIGNS / SYMPTOMS / LABS ATTENDING H&P DOCUMENTATION 07/27: ...PATIENT RECENTLY ADMITTED ON 07/20/2017 FOR SYNCOPAL EPISODE. TODAY, THE PATIENT HAD EXACTLY SIMILAR TYPE OF SYNCOPAL EPISODE. ...AT THAT TIME THE PATIENT'S SON NOTED THAT PULSE WAS IN 50' S....WHEN SHE CAME TO THE ER, HER PULSE WAS RUNNING IN THE 50'S. ASSESSMENT & PLAN: 1. RECURRENT SYNCOPE. ...THIS PATIENT ALSO HAS BRADYCARDIA WITH BRADYARRHYTHMIA. CARDIOLOGY CONSULT 07/28: ASSESSMENT & PLAN: 1. SYNCOPE: HER LOOP RECORDER WAS INTERROGATED & IT SHOWED DURING EPISODE OF SYNCOPE, HER HEART RATE WENT DOWN TO 38 & THIS CORRELATED WITH THE TIME OF HER SYNCOPAL EPISODE. I SUSPECT THIS EPISODE OF SYNCOPE MAY HAVE BEEN RELATED TO SYMPTOMATIC BRADYCARDIA. RISK FACTORS: RECURRENT SYNCOPE ADVANCED AGE HX OF CAD S/P CABG TREATMENTS: CARDIOLOGY CONSULT LOOP RECORDER INTERROGATION PACEMAKER INSERTION THANK YOU! Shantelle (This form is maintained as a part of the permanent medical record) 2014 [employer]. All Rights Reserved Shantelle Rosas RN, BSN [email or web address] Office: [phone] [facility]
[2017-07-30] MEDS ORDERED: Amlodipine 5 MG TAB PO SCH (09:00)
[2017-07-30] MEDS: hydrALAZINE 25 MG TAB PO SCH (09:38)
[2017-07-30] MEDS: Ezetimibe 10 MG TAB PO SCH (09:38)
[2017-07-30] MEDS: Cephalexin 250 MG CAP PO SCH (09:38)
[2017-07-30] MEDS ORDERED: hydrALAZINE 25 MG TAB PO SCH ×4 (09:55→21:00)
[2017-07-30 11:56] VITALS: BP 155/77
--- NOTE | 2017-07-30 12:10 | EKG ---
Test Reason : Blood Pressure : / mmHG Vent. Rate : 060 BPM Atrial Rate : 060 BPM P-R Int : 166 ms QRS Dur : 146 ms QT Int : 468 ms P-R-T Axes : 000 -56 134 degrees QTc Int : 468 ms Electronic atrial pacemaker Right bundle branch block Left anterior fascicular block Bifascicular block Left ventricular hypertrophy with repolarization abnormality Abnormal ECG When compared with ECG of 27-JUL-2017 13:29, (Unconfirmed) Electronic atrial pacemaker has replaced Sinus rhythm Minimal criteria for Septal infarct are no longer Present T wave inversion more evident in Lateral leads Confirmed by DR. Nel KRAMER (3) on 07/30/2017 12:09:32 PM Referred By: ALLEGRA Confirmed By:DR. Nel KRAMER
--- NOTE | 2017-07-31 06:17 | DIS ---
DISCHARGE DIAGNOSES: 1. Recurrent syncope secondary to bradycardia status post pacemaker placement. 2. Senile dementia. 3. Cardiopulmonary disease. 4. Hypertension. 5. Chronic kidney disease stage 3. CONSULTATIONS: Cardiology. PROCEDURES: Pacemaker placement. HOSPITAL COURSE: This is an 87-year-old female who was admitted with recurrent syncope and was foun d to have third-degree heart block and Cardiology recommended pacemaker placement. Family agreed an d she has undergone the procedure without any complications and was feeling well. She was feeling b yvette. She was walking with physical therapy on the day of discharge without any symptoms. She den ies any dizziness or any chest pain or lightheadedness. Family and son was aware also. The son was here to pick her up. CONDITION ON DISCHARGE: Stable. DISPOSITION: To home. The patient's blood pressure was slightly high, it was actually labile. The patient's isosorbide mo nonitrate was also held as it could cause symptoms that brought her to the hospital. Family is awar e. The patient and family was advised to uptitrate other medicines and keep a close monitor of bloo d pressure at home and keep a log and bring it to the PCP and Cardiology visits. DISCHARGE MEDICATIONS: Zetia 10 mg p.o. at bedtime, Aricept 5 mg daily, vitamin C 1 p.o. daily, tariq cium with vitamin D, aspirin 81 mg p.o. daily, hydralazine 50-100 mg p.o. b.i.d. based on the blood pressure, and Toprol-XL 50 mg p.o. daily. DISCHARGE FOLLOWUP: Follow up with primary care in 1 week. Follow up with Cardiology in 1-2 weeks. Please note that I did spend more than 35 minutes coordinating the discharge care of this patient.
== END 2017-07-30 13:00 | disposition home or self-care (01) ==
LOC: ERS 13:15 → INTOOBSV 15:55 → 2NO 15:55
PROVIDERS: ADMIT Internal Medicine; ATTEND Internal Medicine
PROC: 0JH606Z Insertion of Pacemaker, Dual Chamber into Chest Subcutaneous Tissue and Fascia, Open Approach (ICD-10-PCS; principal; 2017-07-27)
PROC: 02H63JZ Insertion of Pacemaker Lead into Right Atrium, Percutaneous Approach (ICD-10-PCS; 2017-07-27)
PROC: 02HK3JZ Insertion of Pacemaker Lead into Right Ventricle, Percutaneous Approach (ICD-10-PCS; 2017-07-27)
DX: R00.1 Bradycardia, unspecified (principal); R55 Syncope and collapse; I25.10 Atherosclerotic heart disease of native coronary artery without angina pectoris; M19.90 Unspecified osteoarthritis, unspecified site; E78.5 Hyperlipidemia, unspecified; I12.9 Hypertensive chronic kidney disease with stage 1 through stage 4 chronic kidney disease, or unspecified chronic kidney disease; N18.3 Chronic kidney disease, stage 3 (moderate); F03.90 Unspecified dementia, unspecified severity, without behavioral disturbance, psychotic disturbance, mood disturbance, and anxiety; Z88.5 Allergy status to narcotic agent; Z88.8 Allergy status to other drugs, medicaments and biological substances; Z79.899 Other long term (current) drug therapy; Z90.49 Acquired absence of other specified parts of digestive tract; Z90.710 Acquired absence of both cervix and uterus; Z90.89 Acquired absence of other organs; Z95.1 Presence of aortocoronary bypass graft; Z98.890 Other specified postprocedural states
CPT/HCPCS: 33208; 71010 ×2; 80048 ×2; 80053; 82550; 82553 ×2; 82962 ×2; 84484 ×2; 85025 ×3; 93005 ×2; 93798 ×2; 96361; 96374; 97116; 97139 ×2; 99285; C1785; C1898; G0378 ×2; G8978; G8979; G8980; 36415; 36416; 93010; 96360; 99152; 99153; A4216; J0360; J0690; J1580; J2001; J2250; J3010

== ENCOUNTER 2017-11-18 09:13 | Outpatient (CLI) | payer MEDICARE ==
--- NOTE | 2017-11-18 11:59 | ULT ---
RENAL SONOGRAM WITH DUPLEX EVALUATION: HISTORY: Chronic renal disease. FINDINGS: The right kidney is 8.1 cm and the left 10.1. There is thinning of the cortex of each kidney. A tin y cyst at the superior pole of the right kidney is 0.5 cm diameter. No hydronephrosis is apparent. Urinary bladder is incompletely distended. Good color and spectral Doppler flow are present within the aorta and each renal artery without abnor whit elevated peak systolic velocity. Resistive index associated with the arcuate arteries of each kidney is 0.7. IMPRESSION: Chronic atrophy of the cortex of each kidney. No evidence of urinary tract obstruction. POS: [facility]
== END 2017-11-18 09:14 | disposition home or self-care (01) ==
LOC: ULT 09:13
PROVIDERS: ATTEND Internal Medicine Nephrology
DX: N18.4 Chronic kidney disease, stage 4 (severe) (principal); N26.1 Atrophy of kidney (terminal)
CPT/HCPCS: 76700; 76770

== ENCOUNTER 2018-01-16 14:21 | Emergency (ER) | payer MEDICARE ==
[2018-01-16 15:20] LABS: #Basophils 0.1 thou/uL (0.0-0.2); #Eosinphils 0.3 thou/uL (0.0-0.7); #Lymphocytes 1.3 thou/uL (1.20-3.40); #Monocytes 0.5 thou/uL (0.11-0.59); %Basophils 1.8 % (0.0-1.0); %Eosinophils 4.8 % (0.0-10.0); %Lymphocytes 21.4 % (21.0-51.0); %Monocytes 8.6 % (0.0-10.0); %Neutrophils 63.5 % (42.0-75.0); Mean Corpuscular HGB CONC 33.4 g/dL (32.0-36.0); Mean Corpuscular Hemoglobin 31.2 pg (27.0-31.0); Mean Corpuscular Volume 93.3 fl (81.0-99.0); Mean Platelet Volume 8.7 fL (7.4-10.4); Platelet Count 188 thou/uL (130-400); RBC Distribution Width 12.1 % (11.5-14.5); Red Blood Cell (RBC) Count 4.17 mill/uL (4.20-5.40); White Blood Cell (WBC) Count 6.2 thou/uL (4.8-10.8)
[2018-01-16 15:23] LABS: Bilirubin Negative (Negative); Blood, Urine Negative (Negative); Clarity Slightly Cloudy (Clear); Glucose, Urine (Dipstick) Negative (Negative); Leukocyte Negative (Negative); Nitrite Negative (Negative); Protein, Urine (Dipstick) 30 mg/dL (Neg-Trace); Specific Gravity, Urine 1.015 (1.005-1.030); Urobilinogen 0.2 mg/dL (0.2-1.0)
[2018-01-16 15:32] LABS: RBC/HPF 0-3 HPF (0-3); WBC/HPF 0-3 HPF (0-3)
[2018-01-16 15:33] LABS: Bacteria/HPF 1+ HPF (None Seen); Crystals/HPF 1+ AMORPH PHOS HPF (Negative); Renal Epithelial 0-3 HPF (0-3); Squamous Epithelial 0-3 HPF (0-3)
[2018-01-16 15:34] LABS: ALT (SGPT) Less than 6 U/L (8-55); AST (SGOT) 16 U/L (5-34); Albumin 3.8 g/dL (3.4-4.8); Alkaline Phosphatase 52 U/L (40-150); Anion Gap 13 mmol/L (10-20); BUN (Urea Nitrogen) 46 mg/dL (9.8-20.1); Bilirubin, Total 0.4 mg/dL (0.2-1.2); Calc. Creatinine Clearance 0 mL/min (70-130); Calcium 10.1 mg/dL (7.8-10.44); Carbon Dioxide 28 mmol/L (23-31); Chloride 103 mmol/L (98-107); Estimated GFR-MDRD 29; Globulin 3.6 g/dL (2.4-3.5); Glucose 107 mg/dL (83-110); Lipase 19 U/L (8-78); Potassium 4.2 mmol/L (3.5-5.1); Protein, Total 7.4 g/dL (6.0-8.3); Sodium 140 mmol/L (136-145)
--- NOTE | 2018-01-16 15:54 | RAD ---
CHEST 2 VIEWS: COMPARISON: 10/18/16. HISTORY: Flank pain. Injury. FINDINGS: Two views chest demonstrate a left-sided transvenous pacemaker, with the distal tip in the region of the right atrium and right ventricle. There is atherosclerosis of the aorta. Sternotomy wires are i dentified. Normal cardiac silhouette. The pulmonary vessels and hilum are normal. Costophrenic ang les are clear. Chronic changes in the lung parenchyma. No consolidation or mass. No pneumothorax. Chronic changes involving both shoulders. IMPRESSION: 1. No acute cardiopulmonary process. 2. Arthrosclerosis. POS: [facility]
--- NOTE | 2018-01-16 15:55 | RAD ---
THREE VIEWS THORACIC SPINE: HISTORY: Pain. Injury. COMPARISON: None. FINDINGS: There is an indeterminate moderate compression fracture at T12. If there is pain or point tenderness in this region, consider CT. Remaining thoracic spine vertebral body heights are maintained. No fr acture. There is diffuse bone demineralization. IMPRESSION: Indeterminate T12 compression fracture. CT if clinically warranted. POS: [facility]
== END 2018-01-16 16:25 | disposition home or self-care (01) ==
LOC: SCSER 14:21
DX: S22.089A Unspecified fracture of T11-T12 vertebra, initial encounter for closed fracture (principal); I25.2 Old myocardial infarction; E78.5 Hyperlipidemia, unspecified; I10 Essential (primary) hypertension; F03.90 Unspecified dementia, unspecified severity, without behavioral disturbance, psychotic disturbance, mood disturbance, and anxiety; X58.XXXA Exposure to other specified factors, initial encounter
CPT/HCPCS: 36415; 71046; 72072; 80053; 81003; 81015; 82150; 83690; 85025; 87086

== ENCOUNTER 2018-07-07 13:06 | Emergency (ER) | payer MEDICARE ==
[2018-07-07 13:57] LABS: #Basophils 0.1 thou/uL (0.0-0.2); #Eosinphils 0.2 thou/uL (0.0-0.7); #Lymphocytes 0.9 thou/uL (1.20-3.40); #Monocytes 0.5 thou/uL (0.11-0.59); #Neutrophils 5.8 thou/uL (1.40-6.50); %Basophils 0.9 % (0.0-1.0); %Eosinophils 2.4 % (0.0-10.0); %Lymphocytes 11.7 % (21.0-51.0); %Monocytes 6.4 % (0.0-10.0); %Neutrophils 78.6 % (42.0-75.0); Hemoglobin 13.7 g/dL (12.0-16.0); Mean Corpuscular HGB CONC 32.8 g/dL (32.0-36.0); Mean Corpuscular Volume 97.6 fL (78.0-98.0); Platelet Count 215 thou/uL (130-400); RBC Distribution Width 12.4 % (11.5-14.5); Red Blood Cell (RBC) Count 4.28 mill/uL (4.20-5.40); White Blood Cell (WBC) Count 7.3 thou/uL (4.8-10.8)
[2018-07-07 14:21] LABS: ALT (SGPT) Less than 7 U/L (8-55); AST (SGOT) 17 U/L (5-34); Albumin 3.9 g/dL (3.4-4.8); Alkaline Phosphatase 60 U/L (40-150); Anion Gap 11 mmol/L (10-20); BUN (Urea Nitrogen) 48 mg/dL (9.8-20.1); Bilirubin, Total 0.5 mg/dL (0.2-1.2); CK (CPK) 57 U/L (29-168); Calc. Creatinine Clearance 0 mL/min (70-130); Calcium 9.8 mg/dL (7.8-10.44); Carbon Dioxide 28 mmol/L (23-31); Chloride 101 mmol/L (98-107); Estimated GFR-MDRD 28; Globulin 3.7 g/dL (2.4-3.5); Glucose 180 mg/dL (83-110); Potassium 4.3 mmol/L (3.5-5.1); Protein, Total 7.6 g/dL (6.0-8.3); Sodium 136 mmol/L (136-145)
[2018-07-07 14:26] LABS: CKMB 1.6 ng/mL (0-6.6); Troponin I Less than 0.010 ng/mL (< 0.028)
[2018-07-07 14:55] LABS: Bilirubin Negative (Negative); Blood, Urine Small (Negative); Clarity CLOUDY (Clear); Glucose, Urine (Dipstick) Negative (Negative); Leukocyte Moderate (Negative); Nitrite Positive (Negative); Protein, Urine (Dipstick) Negative (Neg-Trace); Urobilinogen 0.2 mg/dL (0.2-1.0); pH, Urine 7.5 (5.0-9.0)
[2018-07-07 14:59] LABS: Bacteria/HPF 4+ HPF (None Seen); Hyaline Casts/LPF 0-3 HYALINE CAST LPF (0-3 Hyaline); Squamous Epithelial None Seen HPF (0-3); WBC/HPF 21-50 HPF (0-3)
--- NOTE | 2018-07-07 15:44 | CT ---
CT BRAIN WITHOUT CONTRAST: INDICATIONS: Acute headache, diaphoresis, and weakness at home, after breakfast. COMPARISON: 07/20/2017 FINDINGS: There is mild generalized cerebral and cerebellar atrophy that appears similar to the prior examinati on. The septum pellucidum and third ventricle are midline. No definite acute infarct, hemorrhage, o r hydrocephalus is present. The mastoid air cells are clear. There are vascular calcifications of t he intracranial arteries that are stable. the visualized paranasal sinuses are clear. The skull is intact. IMPRESSION: No acute intracranial abnormality. POS: [facility]
== END 2018-07-07 16:20 | disposition home or self-care (01) ==
LOC: ERS 13:06
DX: N39.0 Urinary tract infection, site not specified (principal); I10 Essential (primary) hypertension; E78.5 Hyperlipidemia, unspecified; Z79.899 Other long term (current) drug therapy; Z79.82 Long term (current) use of aspirin
CPT/HCPCS: 36415; 70450; 80053; 81003; 81015; 82553; 84484; 85025; 87077; 87086; 87186; 93005

== ENCOUNTER 2019-03-14 02:18 | Emergency (ER) | payer MEDICARE ==
--- NOTE | 2019-03-14 07:52 | CT ---
PRELIMINARY REPORT/[facility]/EMERGENCY AFTER HOURS PROCEDURE: EXAM: CT Head Without Contrast EXAM DATE/TIME: 03/14/2019 2:35 AM CLINICAL HISTORY: 88 years old, female; Injury or trauma; Initial encounter; Blunt trauma (contusions or hematomas); Consciousness not specified; Patient HX: 88 y/o F, with h/o dementia, presents to ED via transport [place] unwitnessed fall. Staff called 911 when they found PT down in the bathroom. PT was awake when found, loc unknown. PT is currently taking asa. TECHNIQUE: Imaging protocol: Axial computed tomography images of the head without contrast. COMPARISON: No relevant prior studies available. FINDINGS: Brain: There is no evidence for acute stroke or bleed. There is global and diffuse parenchymal volume loss. There are scattered foci of decreased attenuation in the periventricular and subcortical white matter , nonspecific, but most consistent with chronic small vessel ischemic changes in patient of this age. Ventricles / cisterns / extra-axial spaces: There is no hydrocephalus, midline shift, or acute extra-axial fluid collection. There is no sulcal effacement. Soft tissues: Left anterior frontal scalp hematoma without underlying skull fracture or depression. Sinuses: No findings of acute sinusitis or suspicious sinus mass. Bone: No acute fracture or displacement. Impression: Chronic changes without evidence for acute, intracranial pathology. Left anterior frontal scalp hematoma without underlying skull fracture or depression. Thank you for allowing us to participate in the care of your patient. Dictated and Authenticated by: Zana Darnell MD 03/14/2019 4:37 AM Central Time ([place] & [place]) FINAL REPORT CT Brain WO Con History: [Trauma. Fall.] Comparison: CT brain July 07, 2018 Findings/Impression: Concordant with the preliminary report. Transcribed Date/Time: 03/14/2019 8:07 AM
--- NOTE | 2019-03-14 07:54 | CT ---
PRELIMINARY REPORT/[facility]/EMERGENCY AFTER HOURS PROCEDURE: EXAM: CT Cervical Spine Without Contrast EXAM DATE/TIME: 03/14/2019 2:37 AM CLINICAL HISTORY: 88 years old, female; Injury or trauma; Initial encounter; Blunt trauma; Patient HX: Additional histo ry obtained from [facility], additional history obtained from EMS, 88 y/o F, with h/o dementia, presents to ED via transport from [place] unwitnessed fall. Staff called 911 when they found PT down in the bathroom. PT was awake when found, loc unknown. PT is currently taking asa. TECHNIQUE: Imaging protocol: Axial computed tomography images of the cervical spine without contrast. Coronal and sagittal reformatted images were created and reviewed. COMPARISON: No relevant prior studies available. FINDINGS: Vertebrae: No fracture or dislocation. No acute compression deformity. No suspicious osseous lesions. Chronic deformities about the odontoid. Disc spaces / canal / foramina: There is multilevel degenerative disc space narrowing and spur formation. No CT evidence of advanced canal stenosis. Paraspinal soft tissues: No pathologic masses or fluid collections. No visible soft tissue air. Bilateral atheromatous carotid calcifications are noted. Incidental note made of multiple thyroid nodules, largest measuring 13 mm on the left, with central dense calcification. IMPRESSION: Chronic degenerative changes without acute fracture or dislocation. Thyroid nodules. Thank you for allowing us to participate in the care of your patient. Dictated and Authenticated by: Zana Darnell MD 03/14/2019 4:41 AM Central Time ([place] & [place]) FINAL REPORT CT Cervical Spine WO Con History: [Trauma. Fall.] Comparison: None. Findings: Severe degenerative change. Heterogeneous appearance of the thyroid for which nonemergent u ltrasound can be obtained. Scarring of the lung apices. Impression: Findings and impression are concordant with the preliminary report. Transcribed Date/Time: 03/14/2019 8:09 AM
== END 2019-03-14 05:13 ==
LOC: ERS 02:18
DX: S01.01XA Laceration without foreign body of scalp, initial encounter (principal); I25.2 Old myocardial infarction; I95.9 Hypotension, unspecified; F03.90 Unspecified dementia, unspecified severity, without behavioral disturbance, psychotic disturbance, mood disturbance, and anxiety; G47.30 Sleep apnea, unspecified; M19.90 Unspecified osteoarthritis, unspecified site; Z79.82 Long term (current) use of aspirin; Z79.899 Other long term (current) drug therapy; W19.XXXA Unspecified fall, initial encounter
CPT/HCPCS: 12011; 70450; 72125; 93005

== ENCOUNTER 2019-12-29 20:29 | Emergency (ER) | payer MEDICARE ==
[2019-12-29 21:04] LABS: Bacteria/HPF 4+ HPF (None Seen); Bilirubin Negative (Negative); Blood, Urine Negative (Negative); Clarity Clear (Clear); Glucose, Urine (Dipstick) Normal (Negative); Leukocyte 75 Leu/uL (Negative); Nitrite Negative (Negative); Protein, Urine (Dipstick) 20 mg/dL (Neg-Trace); RBC/HPF None Seen HPF (0-3); Renal Epithelial 0-3 HPF (None Seen); Squamous Epithelial 0-3 HPF (0-3); Urobilinogen Normal mg/dL (Less than 2)
[2019-12-29 21:29] LABS: #Eosinphils 0.1 thou/uL (0.0-0.7); #Lymphocytes 1.6 thou/uL (1.20-3.40); #Monocytes 0.7 thou/uL (0.11-0.59); #Neutrophils 5.9 thou/uL (1.40-6.50); %Basophils 0.3 % (0.0-1.0); %Eosinophils 1.5 % (0.0-10.0); %Lymphocytes 19.5 % (21.0-51.0); %Monocytes 7.9 % (0.0-10.0); %Neutrophils 70.8 % (42.0-75.0); Mean Corpuscular HGB CONC 32.9 g/dL (32.0-36.0); Mean Corpuscular Hemoglobin 31.6 pg (27.0-31.0); Mean Corpuscular Volume 96.1 fL (78.0-98.0); Platelet Count 237 thou/uL (130-400); RBC Distribution Width 12.2 % (11.5-14.5); Red Blood Cell (RBC) Count 4.13 mill/uL (4.20-5.40); White Blood Cell (WBC) Count 8.4 thou/uL (4.8-10.8)
[2019-12-29 21:56] LABS: ALT (SGPT) 7 U/L (8-55); AST (SGOT) 15 U/L (5-34); Albumin 3.6 g/dL (3.4-4.8); Alkaline Phosphatase 72 U/L (40-110); Anion Gap 13 mmol/L (10-20); BUN (Urea Nitrogen) 37 mg/dL (9.8-20.1); Bilirubin, Total 0.4 mg/dL (0.2-1.2); CK (CPK) 61 U/L (29-168); Calc. Creatinine Clearance 0 mL/min (70-130); Calcium 10.7 mg/dL (7.8-10.44); Carbon Dioxide 29 mmol/L (23-31); Chloride 100 mmol/L (98-107); Estimated GFR-MDRD 37; Globulin 3.3 g/dL (2.4-3.5); Glucose 195 mg/dL (83-110); Potassium 3.9 mmol/L (3.5-5.1); Protein, Total 6.9 g/dL (6.0-8.3); Sodium 138 mmol/L (136-145)
--- NOTE | 2019-12-29 21:57 | CT ---
CT lumbar spine noncontrast: DATE: 12/29/2019 HISTORY: 89-year-old female with low back pain. FINDINGS: Vacuum joint phenomenon, sclerosis, and osteophytosis, of bilateral SI joints. Review of plain radiograph of thoracic spine of 01/16/2018 demonstrates 11 fully formed paired ribs. T 12 has tiny bilateral hypoplastic ribs. There are 5 lumbar-type vertebrae caudal to T12. There is partial visualization of an old compression fracture of T11 with depression of superior endp late and approximately 20-50% loss of height. Mild bony retropulsion of the superior endplate qualifies this as an old burst fracture. This was present on the previous thoracic spine radiograph ( although it was dictated as T12 rather than T11 on that study). The T12-L5 vertebral body heights are maintained. Mild lateral curvature. T11-12: Essentially normal. T12-L1: Left lateral and far lateral eccentric disc bulge. Disc space maintained. No central stenosis . No high-grade neural foraminal stenosis. L1-2: Severe disc space narrowing. Vacuum disc phenomenon. Endplate irregularity with sclerosis and o steophytosis. Mild grade 1 chronic right lateral subluxation of L1 on L2. Mild to moderate ligamentum flavum thickening. Mild to moderate bilateral facet DJD. Moderate to severe right neural f oraminal stenosis. No left neural foraminal stenosis. Somewhat severe central spinal canal stenosis. L2-3: Moderate-severe disc space narrowing. Vacuum disc phenomenon. Endplate irregularity with sclero sis and osteophytosis. Mild to moderate bilateral neural foraminal stenosis. Diffuse disc bulge. Right-sided moderate to severe facet DJD. Mild left facet DJD. Severe central spinal canal stenosis. L3-4: Very severe bilateral facet DJD results in grade 1 anterolisthesis of L3 on L4. No high-grade d isc space narrowing. Diffuse disc bulge. Extremely severe central spinal canal stenosis. Mild bilateral neural foraminal stenosis. L4-5: Very severe right facet DJD. Moderate to severe left facet DJD. Disc space maintained, but ther e is prominent vacuum disc phenomenon. Diffuse disc bulge. Moderate central spinal canal stenosis. Moderate bilateral neural foraminal stenosis. L5-S1: Disc space maintained. Severe bilateral facet DJD, right greater than left. No central spinal canal stenosis. No high-grade neural foraminal stenosis. IMPRESSION: 1.) High-grade lumbar spondylosis: 2) severe degenerative disc disease at L1-2 and L2-3. 3) multilevel severe facet osteoarthrosis. 4) grade 1 spondylolisthesis at L3-4 due to severe facet osteoarthrosis. 5) multilevel severe central spinal canal stenosis, worst at L3-4, followed by L1-2 and L2-3. 6) old burst fracture of T11. 7) moderate osteoarthrosis of bilateral sacroiliac joints.
== END 2019-12-29 23:36 ==
LOC: ERS 20:29
DX: M54.9 Dorsalgia, unspecified (principal); G89.29 Other chronic pain; I25.2 Old myocardial infarction; F03.90 Unspecified dementia, unspecified severity, without behavioral disturbance, psychotic disturbance, mood disturbance, and anxiety; G47.33 Obstructive sleep apnea (adult) (pediatric); N18.3 Chronic kidney disease, stage 3 (moderate); M19.011 Primary osteoarthritis, right shoulder; I25.10 Atherosclerotic heart disease of native coronary artery without angina pectoris; Z79.82 Long term (current) use of aspirin; Z79.899 Other long term (current) drug therapy
CPT/HCPCS: 36415; 51701; 72131; 80053; 81003; 81015; 82550; 84484; 85025; 93005; A4353